=== PATIENT | male | born 1985 | race Hispanic/Latino ===

== ENCOUNTER 2021-06-29 07:44 | Emergency (ER) | payer SELFPAY ==
--- NOTE | ~2021-06-29 | CT_ITS ---
EXAMINATION: CT abdomen pelvis wo con DATE: 06/29/2021 08:56 INDICATION: Left flank pain and hematuria TECHNIQUE: Computed tomography (CT) of the abdomen and pelvis was performed without intravenous contr ast. The dose-length product (DLP) was 527.18 mGy-cm. Automated exposure control and iterative recons truction technique were employed. COMPARISON: None FINDINGS: The lung bases are clear. The heart size is normal. The liver is diffusely low in attenuati on when compared with the spleen, consistent with hepatic steatosis. The liver, spleen, pancreas, gal lbladder, and adrenal glands are normal. There is a 3 mm stone in the urinary bladder. There is left hydroureteronephrosis. There is a small amount of fluid surrounding the left kidney. There is a 2 mm nonobstructing stone of the right kidney. No pathologically enlarged abdominal or pelvic lymph nodes are identified. There is no free intraperitoneal gas or evidence of bowel obstruction. The appendix i s normal. IMPRESSION: 1. 3 mm stone in the urinary bladder with left hydroureteronephrosis, likely due to recent passage of left-sided stone. 2. Small amount of fluid surrounding the left kidney which could reflect superimposed pyelonephritis. 3. Diffuse hepatic steatosis. Reviewed, dictated and finalized at location A. IMPRESSION: 1. 3 mm stone in the urinary bladder with left hydroureteronephrosis, likely du e to recent passage of left-sided stone. 2. Small amount of fluid surrounding the left kidney which could reflect superi mposed pyelonephritis. 3. Diffuse hepatic steatosis.
[2021-06-29 07:54] VITALS: BP 146/85; PULSE 83; RESP 20; TEMP 36.6; O2SAT 99
[2021-06-29 08:11] LABS: Basophils Percent Auto 0.3 % (0.2-1.2); Hemoglobin 15.8 g/dL (14.0-18.0); Immature Granulocyte Absolute 0.05 K/mm3 (0.00-0.031); Immature Granulocyte Percent A 0.3 % (0-0.5); Lymphocytes Absolute Auto 1.02 K/mm3 (0.9-3.2); Mean Corpuscular HGB Conc 33.6 g/dl (32-36); Mean Corpuscular Hemoglobin 32.2 pg (26-34); Mean Corpuscular Volume 95.9 fl (80-100); Mean Platelet Volume 10.5 fl (7.4-10.4); Monocytes Absolute Auto 0.6 K/mm3 (0.1-0.6); Monocytes Percent Auto 3.8 % (2.6-8.5); Neutrophils Absolute Auto 12.9 K/mm3 (1.3-6.7); Neutrophils Percent Auto 88.6 % (45.5-73.1); Platelet Count Result 232 k/mm3 (150-375); Red Cell Distribution Width 12.7 % (11.5-14.5); White Blood Count 14.6 K/mm3 (4.5-10.0)
[2021-06-29 08:14] LABS: Add Urine Microscopic? YES; Appearance Urine Clear (Clear); Bilirubin Urine Negative (Negative); Blood Urine 3+ (Negative); Color Urine Yellow (Yellow); Glucose Urine UA 1+ mg/dL (Negative); Ketones Urine Negative (Negative); Leukocyte Esterase Ur Negative LEU/UL (Negative); Mucus Urine Rare /lpf; Nitrate Urine Negative (Negative); Protein Urine Negative (Negative); RBC Urine >75 /hpf (0-2); Specific Grav Ur 1.018 (1.001-1.035); Urobilinogen Urine Negative mg/dL (<2.0); WBC Urine 0-3 /hpf
[2021-06-29 08:17] VITALS: BP 157/100; PULSE 95; RESP 20; O2SAT 99
[2021-06-29 08:23] LABS: Anion Gap 9 mmol/L (8-16); Blood Urea Nitrogen 9 mg/dL (9-20); Calcium 9.1 mg/dL (8.4-10.2); Carbon Dioxide 21 mmol/L (22-30); Chloride 106 mmol/L (98-107); Estimated CRCL calculation 90 ml/min; Estimated Glomerular Filt Rate > 60; Glucose 137 mg/dL (65-110); Potassium 4.1 mmol/L (3.4-5.0); Sodium 136 mmol/L (137-145)
--- NOTE | 2021-06-29 08:51 | ED.ABDPAIN ---
HPI - Abdominal Pain General Chief Complaint: Abdominal Pain Stated Complaint: back pain/abdominal pain and hematuria Time Seen by Provider: 06/29/21 08:40 Source: patient and family Mode of arrival: ambulatory Limitations: no limitations History of Present Illness HPI narrative: Patient is 36 years old male complaining of left flank pain started last night associated with blood in the urine and nausea. History of lower back pain. Patient denies any fever, chills, chest pain or shortness of breath. Patient denies any history of kidney stone Related Data Allergies Allergy/AdvReac Type Severity Reaction Status Date / Time No Known Allergies Allergy Verified 06/29/21 07:58 Review of Systems Review of Systems: CONSTITUTIONAL: Denies fever, chills, or sweats. EYES: Denies visual changes, redness, or discharge. ENT: Denies rhinorrhea, congestion, sore throat, or otalgia. CARDIOVASCULAR: Denies chest pain, palpitations, or edema. RESPIRATORY: Denies cough or dyspnea. GASTROINTESTINAL: Denies abdominal pain, nausea, vomiting, or diarrhea. GENITOURINARY: Denies dysuria or hematuria. SKIN: Denies rash or itching. MUSCULOSKELETAL: Denies back pain, joint pain, or myalgia. NEUROLOGIC: Denies headache, numbness, or weakness. PSYCHIATRIC: Denies anxiety or depression. PMFSH Social History Social History Gender identity (if verbalized by the patient): Male Exam Narrative: General appearance: Well-developed, well-nourished, in pain Skin: Normal color Head: Normocephalic, nontraumatic Eyes: Clear conjunctiva ENT: Oropharynx normal, ears normal, nose normal Neck: Supple, nontender Chest and respiratory: Airway patent, no respiratory distress, no accessory muscle use Heart: Regular rate/rhythm Abdomen: Soft, left flank tenderness, no organomegaly, quiet bowel sounds Vascular: Normal peripheral pulses, normal capillary refill. Musculoskeletal: Normal range of motion, nontender back Neurologic: Alert and oriented ?3, TELE[employer] COORD[employer]ATOR is normal as tested, no gross motor deficit Course Course Emergency Course: Stable Vital Signs Vital signs: Vital Signs Temperature 36.6 C 06/29/21 07:54 Pulse Rate 83 06/29/21 07:54 Respiratory Rate 20 06/29/21 07:54 Blood Pressure 146/85 H 06/29/21 07:54 Pulse Oximetry 99 06/29/21 07:54 Temperature 36.8 C 06/29/21 11:56 Pulse Rate 88 06/29/21 11:56 Respiratory Rate 16 06/29/21 11:56 Blood Pressure 133/78 06/29/21 11:56 Pulse Oximetry 100 06/29/21 11:56 MDM - Abdominal Pain MDM Narrative Medical decision making narrative: Lower back muscular spasm versus kidney stone is my concern. Labs, CT abdomen and pelvis without contrast, IV fluids ordered Differential Diagnosis Differential diagnosis: Likely calculus of kidney and other (Musculoskeletal back pain) Lab Data Result diagrams: 06/29/21 07:59 06/29/21 07:59 Labs: Lab Results 06/29/21 06/29/21 06/29/21 Range/Units 07:59 07:59 07:59 WBC 14.6 H (4.5-10.0) K/mm3 RBC 4.90 (4.6-6.20) M/mm3 Hgb 15.8 (14.0-18.0) g/dL Hct 47.0 (42.0-52.0) % MCV 95.9 (80-100) fl MCH 32.2 (26-34) pg MCHC 33.6 (32-36) g/dl RDW 12.7 (11.5-14.5) % Plt Count 232 (150-375) k/mm3 MPV 10.5 H (7.4-10.4) fl Immature Gran % (Auto) 0.3 (0-0.5) % Neut % (Auto) 88.6 H (45.5-73.1) % Lymph % (Auto) 7.0 L (18.3-44.2) % [place] % (Auto) 3.8 (2.6-8.5) % Eos % (Auto) 0.0 (0-4.4) % Baso % (Auto) 0.3 (0.2-1.2) % Lymph # (Auto) 1.02 (0.9-3.2) K/mm3 [place] # (Auto) 0.6 (0.1-0.6) K/mm3 Eos # (Auto) 0.0
[2021-06-29] MEDS: KETOROLAC 30 MG/ML VIAL (*BKC) IV PUSH (08:57)
[2021-06-29] MEDS: SODIUM CHLORIDE 0.9% IV 1,000 ML 999 ML IV CONT (08:57)
[2021-06-29 09:26] VITALS: BP 152/94; PULSE 20; RESP 99; O2SAT 100
[2021-06-29 09:46] LABS: Alanine Aminotransferase 217 U/L (4-50); Alkaline Phosphatase 121 U/L (38-126); Aspartate Amino Transferase 194 U/L (17-59); Bilirubin,Total 0.9 mg/dL (0.2-1.3)
[2021-06-29 10:15] VITALS: BP 126/74; PULSE 82; RESP 20; O2SAT 100
[2021-06-29 11:56] VITALS: BP 133/78; PULSE 88; RESP 16; TEMP 36.8; O2SAT 100
== END 2021-06-29 12:12 | disposition home or self-care (01) ==
PROVIDERS: Emergency Provider Emergency Medicine
DX: N20.0 Calculus of kidney (principal)
CPT/HCPCS: 36415; 74176; 80048; 80076; 81001; 85025; 96361; 96374; 99284; J1885; J7030